=== PATIENT | female | born 1975 | race Hispanic/Latino ===

== ENCOUNTER 2024-04-07 05:29 | Emergency (ER) | payer BC ==
[~2024-04-07] VITALS: Ht 160 cm; Wt 104.3 kg
[~2024-04-07 05:29] MED LIST: DICY20TA2 PO; ONDA-243 PO
--- NOTE | 2024-04-07 06:11 | ERN ---
General Chief Complaint: Multiple Complaints Stated Complaint: VAGINAL D/C. ABD PAIN, BREAST TENDERNESS Time Seen by MD: 05:46 History of Present Illness Initial Comments Mrs Odonnell is a 49-year-old female who comes in today with a chief complaint of right lower quadrant pain, vaginal discharge and bilateral breast pain. Patient reports that she has been suffering from vaginal discharge for the last 3 weeks. She states she is sexually active with her . Patient states that she has been treated for a yeast infection but this is not improve. Patient describes the discharge is yellow. Patient also reports right flank pain was down the right groin. Patient states that she has been having breast tenderness for the last day and half. Allergies: Coded Allergies: No Known Allergies (Unverified Allergy, Unknown, 07/09/21) Home Meds Active Scripts Ondansetron (Ondansetron Odt) 4 Mg Tab.rapdis, 4 MG PO QIDP, #28 TAB Prov:CHANA SALDAÑA PA 07/09/21 Dicyclomine HCl (Bentyl) 20 Mg Tab, 20 MG PO QIDP, #28 TAB Prov:CHANA SALDAÑA 07/09/21 Past Medical History Past Medical History: Other Medical History Other: Obesity Past Surgical History: Hysterectomy, Cholecystectomy, Other Surgical History Other: D AND C , GASTRIC SLEEVE ROS Dictation Constitutional: Negative for fever,chills, and weight loss Eyes: Negative for injury, pain,redness, and discharge ENT: Negative for injury,pain or swelling Cardiovascular: Negative for chest pain, palpitations, and edema Respiratory: Negative for shortness of breath, cough, and wheezing, Abdomen/GI: Negative for abdominal pain, nausea, vomiting, diarrhea, and constipation Back: Negative for injury and pain : Positive for discharge MS/Extremity: Positive for right groin pain, breast pain Skin: Negative for rash, and discoloration Neuro: Negative for headache, weakness, numbness, tingling, and seizure Psych: Negative for suicide ideation, homicidal ideation, and hallucinations Physical Exam Physical Exam Dictation General: awake, alert, NAD Head/Face: Normocephalic, atraumatic Eyes: PERRL, EOMI ENT: oral cavity clear Cardiovascular: RRR, normal S1/S2, No MRGs, no JVD Respiratory: CTAB, no respiratory distress, No rales or wheezes Abdomen: Soft, non-tender, non-distended, normal bowel sounds, no guarding or rebound. Skin: Warm, dry, normal turgor, no rash : Pelvic exam was done, external genitalia was without lesion. Patient did have visualization of cervix which was edematous. Patient did not have yellow grayish discharge from cervix MS/Extremity: Pulses equal, no cyanosis Neuro: COAx4, GCS 15, strength 5/5, CN 2-12 intact Results Laboratory and Microbiology Lab and Micro Result Laboratory Tests Test 04/07/24 06:15 04/07/24 08:19 White Blood Count 7.3 K/uL (4.8-10.8) Red Blood Count 4.38 MIL/uL (4.00-5.50) Hemoglobin 13.9 g/dL (12.0-16.0) Hematocrit 39.4 % (36-48) Mean Corpuscular Volume 90.0 fL (79-99) Mean Corpuscular Hemoglobin 31.7 pg (27.0-33.0) Mean Corpuscular Hemoglobin Concent 35.3 g/dL (32.0-36.0) Red Cell Distribution Width 12.4 % (11.0-15.5) Platelet Count 228 K/uL (130-400) Mean Platelet Volume 9.8 fL (7.5-10.5) Immature Granulocyte % (Auto) 0.3 % (0-1) Neutrophils (%) (Auto) 62.8 % (40.0-77.0) Lymphocytes (%) (Auto) 26.8 % (21.0-51.0) Monocytes (%) (Auto) 7.8 % (3.0-13.0) Eosinophils (%) (Auto) 1.9 % (0.0-8.0) Basophils (%) (Auto) 0.4 % (0.0-5.0) Neutrophils # (Auto) 4.6 K/uL (1.8-7.7) Lymphocytes # (Auto) 2.0 K/uL (1.0-4.8) Monocytes # (Auto) 0.6 K/uL (0.1-1.0) Eosinophils # (Auto) 0.14 K/uL (0.00-0.70) Basophils # (Auto) 0.03 K/uL (0.00-0.20) Absolute Immature Granulocyte (auto 0.02 K/uL (0-1) Segmented Neutrophils % 65 % (40-70) Lymphocytes % (Manual) 24 % (22-44) Monocytes % (Manual) 3 % (2-9) Eosinophils % (Manual) 4 % (1-6) Basophils % (Manual) 2 % (0-2) Nucleated Red Blood Cells 0.0 % (0.0-0.19) Differential Comment MANUAL DIFFERENTIAL Reactive Lymphocytes 2 % (0-0) H White Cell Morphology Comment Platelet Morphology Comment ADEQUATE Red Blood Cell Morphology NORMAL Sodium Level 140 mmol/L (136-145) Potassium Level 3.7 mmol/L (3.5-5.1) Chloride Level 107 mmol/L (101-111) Carbon Dioxide Level 27 mmol/L (21-32) Blood Urea Nitrogen 8 mg/dL (7-18) Creatinine 0.6 mg/dL (0.5-1.0) Glomerular Filtration Rate Calc 109 mL/min (>90) Random Glucose 98 mg/dL (70-105) Total Calcium 8.8 mg/dL (8.5-10.1) Total Bilirubin 0.4 mg/dL (0.2-1.0) Aspartate Amino Transf (AST/SGOT) 51 U/L (10-37) H Alanine Aminotransferase (ALT/SGPT) 50 U/L (12-78) Alkaline Phosphatase 88 U/L (50-136) Total Protein 6.6 g/dL (6.0-8.3) Albumin 3.3 g/dL (3.5-5.0) L Urine Color COLORLESS (YELLOW) Urine Appearance CLEAR (CLEAR) Urine pH 6.0 (5.0-8.0) Urine Specific [place] 1.004 (1.001-1.031) Urine Protein NEGATIVE mg/dL (NEGATIVE) Urine Glucose (UA) NEGATIVE mg/dL (NEGATIVE) Urine Ketones NEGATIVE mg/dL (NEGATIVE) Urine Occult Blood NEGATIVE (NEGATIVE) Urine Nitrate NEGATIVE (NEGATIVE) Urine Bilirubin NEGATIVE mg/dL (NEGATIVE) Urine Urobilinogen 0.2 mg/dL (0.2-1.0) Urine Leukocyte Esterase NEGATIVE Manjula/uL MDM MDM: Differential diagnosis: Vaginal discharge, vaginitis Patient is a 49-year-old female coming in to be evaluated for vaginal discharge. Per outgoing physician pelvic exam was performed yellowish discharge was present. Patient received antibiotics will be discharged in stable condition with continues treatment for possible vaginitis. I have also advised her appropriate follow up with [facility] for further evaluation. ED Course Orders Procedure Category Date Status Time Urinalysis Profile LAB 04/07/24 Complete 05:37 Cbc With Differential LAB 04/07/24 Complete 05:54 Chlamydia & Gc Pcr ACACIA 04/07/24 In Process 05:54 Cbc W Manual Diff LAB 04/07/24 Complete 05:54 Comprehensive LAB 04/07/24 Complete Metabolic Panel 05:54 Pelvic Exam Set Up CPOE 04/07/24 Transmitted (Er) 06:33 Us Pelvic Non-Ob Comp US 04/07/24 Resulted 06:36 Ceftriaxone 1g Vial PHA 04/07/24 Complete (Rocephine 1g Inj) 07:00 Azithromycin PHA 04/07/24 Complete (Zithromax) 07:00 Wet Prep ACACIA 04/07/24 Complete 06:40 Chlamydia & Gc Pcr ACACIA 04/07/24 In Process 06:42 Current Medications Medications (Trade) Dose Ordered Sig/Ava Route PRN Reason Start Time Stop Time Status Last Admin Dose Admin Azithromycin (Zithromax) 1,000 mg ONCE ONCE PO 04/07/24 07:00 04/07/24 07:01 DC 04/07/24 06:49 Ceftriaxone Sodium (ROCEphine 1G INJ) 1 gm ONCE ONCE IM 04/07/24 07:00 04/07/24 07:01 DC 04/07/24 07:00 Vital Signs Date Time Temp Pulse Resp B/P (MAP) Pulse Ox O2 Delivery O2 Flow Rate FiO2 04/07/24 08:20 99.0 54 16 121/55 98 Room Air* 0 21 04/07/24 07:02 66 18 117/83 98 Room Air* 0 21 04/07/24 05:31 97.5 67 18 107/77 98 Room Air DX & DISP Disposition: Discharge Departure Impression: Primary Impression: Vaginitis Condition: Stable Additional Instructions: FOLLOW-UP WITH PRIMARY CARE PROVIDER IN 1 TO 2 DAYS. TAKE MEDICATIONS DIRECTED HERE IN THE EMERGENCY ROOM. OKAY TO CONTINUE HOME MEDICATIONS UNLESS OTHERWISE DISCUSSED DURING YOUR VISIT IN THE EMERGENCY ROOM TODAY. RETURN TO YOUR NEAREST EMERGENCY ROOM IF SYMPTOMS WORSEN OR IF THERE IS NO IMPROVEMENT. C ALL 911 IF YOU NEED IMMEDIATE ASSISTANCE. TAKE TYLENOL [id number] NEEDED AND IF NO CONTRAINDICATIONS ARE PRESENT. INCREASE ORAL HYDRATION. A WOUND CULTURE OR URINE CULTURE WAS ORDERED HERE IN THE EMERGENCY ROOM DEPARTMENT PLEASE FOLLOW-UP WITH PRIMARY CARE PROVIDER AND ADVISE THEM TO GET REPEAT PORTS FROM OUR FACILITY. IF YOU HAD ANY AAMIR WRAP/SPLINTS THAT WERE APPLIED HERE, PLEASE DO NOT REMOVE THEM UNTIL YOU SEE YOUR PRIMARY CARE OR SPECIALTY. Referrals: Referrals: AUDI JOSE MD (PCP) FERMIN MARTÍNEZ MD Time of Disposition: 08:41 JACQUIE GLASER MD Apr 07, 2024 06:11 KITA GUERRERO MD Apr 07, 2024 08:41
[2024-04-07 06:21] LABS: BASOPHILS # (AUTO) 0.03 K/uL (0.00-0.20); BASOPHILS % (AUTO) 0.4 % (0.0-5.0); EOSINOPHILS # (AUTO) 0.14 K/uL (0.00-0.70); EOSINOPHILS % (AUTO) 1.9 % (0.0-8.0); HEMATOCRIT 39.4 % (36-48); IMMATURE GRANULOCYTE ABSOLUTE 0.02 K/uL (0-1); LYMPHOCYTES % (AUTO) 26.8 % (21.0-51.0); MEAN CORPUSCULAR HEMOGLOBIN 31.7 pg (27.0-33.0); MEAN CORPUSCULAR HGB CONC 35.3 g/dL (32.0-36.0); MONOCYTES # (AUTO) 0.6 K/uL (0.1-1.0); MONOCYTES % (AUTO) 7.8 % (3.0-13.0); NEUTROPHILS # (AUTO) 4.6 K/uL (1.8-7.7); NEUTROPHILS % (AUTO) 62.8 % (40.0-77.0); PLATELET COUNT (AUTO) 228 K/uL (130-400); RED BLOOD CELL COUNT(AUTO) 4.38 MIL/uL (4.00-5.50); RED CELL DISTRIBUTION WIDTH 12.4 % (11.0-15.5); WHITE BLOOD COUNT (AUTO) 7.3 K/uL (4.8-10.8)
[2024-04-07 06:39] LABS: ALBUMIN 3.3 g/dL (3.5-5.0); BILIRUBIN,TOTAL 0.4 mg/dL (0.2-1.0); CREATININE 0.6 mg/dL (0.5-1.0); POTASSIUM 3.7 mmol/L (3.5-5.1); TOTAL PROTEIN, SERUM 6.6 g/dL (6.0-8.3)
[2024-04-07] MEDS: AZITHROMYCIN 250 MG TABLET PO ONE (06:49)
[2024-04-07] MEDS: cefTRIAXone 1G VIAL IM ONE (07:00)
[2024-04-07 07:28] LABS: BASOPHILS % (MANUAL) 2 % (0-2); EOSINOPHILS % (MANUAL) 4 % (1-6); LYMPHOCYTES % (MANUAL) 24 % (22-44); MAN.DIFF COMMENT-IMPRESSION MANUAL DIFFERENTIAL; MONOCYTES % (MANUAL) 3 % (2-9); PLATELET MORPHOLOGY COMMENT ADEQUATE; REACTIVE LYMPHOCYTES 2 % (0-0); SEGMENTED NEUTROPHILS % 65 % (40-70); TOTAL CELLS COUNTED 100
[2024-04-07 08:28] LABS: ADD UA MICROSCOPIC NO; APPEARANCE,URINE CLEAR (CLEAR); BILIRUBIN,URINE NEGATIVE (NEGATIVE); COLOR,URINE COLORLESS (YELLOW); GLUCOSE, URINE (UA) NEGATIVE (NEGATIVE); KETONES,URINE NEGATIVE (NEGATIVE); LEUKOCYTE ESTERASE ,URINE NEGATIVE Leu/uL (NEGATIVE); NITRATE,URINE NEGATIVE (NEGATIVE); OCCULT BLOOD,URINE NEGATIVE (NEGATIVE); PROTEIN,URINE NEGATIVE (NEGATIVE); UROBILINOGEN,URINE 0.2 mg/dL (0.2-1.0)
--- NOTE | 2024-04-07 08:39 | HMCIMG ---
US PELVIC NON-OB COMP HISTORY: Pelvic pain COMPARISON: None TECHNIQUE: Transabdominal pelvic ultrasound study was performed. FINDINGS: The uterus measures 10.5 x 5.5 x 4.6 cm. The right ovary measures 1.6 x 1.3 x 1.8 cm. The left ovary measures 2.5-1 0.6 x 2.1 cm. Endometrial thickness is 2 mm. No free fluid is seen in the cul-de-sac. IMPRESSION: 1. No adnexal mass is seen.
[2024-04-07 09:30] VITALS: BP 103/68; PULSE 60; RESP 16; TEMP 98.6; O2SAT 98
== END 2024-04-07 09:44 | disposition home or self-care (01) ==
LOC: EDH 05:29
DX: N76.0 Acute vaginitis (principal); E66.9 Obesity, unspecified; Z79.899 Other long term (current) drug therapy; Z90.49 Acquired absence of other specified parts of digestive tract; Z90.710 Acquired absence of both cervix and uterus; Z98.890 Other specified postprocedural states
CPT/HCPCS: 99284; 76856; 80053; 85025 ×2; 87210; 87491 ×2; 87591 ×2; 81003; 36415; 96372; J0696